=== PATIENT | male | born 1940 | race Caucasian/White ===

== ENCOUNTER → 2016-07-27 | Outpatient (CLI) | payer MEDICARE, OTHER ==
[~2016-07-27] MED LIST: ASPIR 8181 M1 PO; BENICAR40 MG PO; COZAAR25 MG PO; NEXIUM40 MG PO; ZOCOR20 MG PO; ZOFRAN4 MG PO
== END | disposition home or self-care (01) ==
LOC: CDC 08:37
DX: I45.10 Unspecified right bundle-branch block (principal); K40.90 Unilateral inguinal hernia, without obstruction or gangrene, not specified as recurrent
CPT/HCPCS: 93000

== ENCOUNTER 2016-08-01 08:25 | Day surgery (SDC) | payer OTHER ==
[~2016-08-01] VITALS: Ht 177.8 cm; Wt 84.0 kg
[2016-08-01 09:25] VITALS: BP 121/65
[2016-08-01] MEDS ORDERED: PERCOCET 5/31 TABLET PO (12:55)
[2016-08-01 15:10] VITALS: BP 128/59
== END 2016-08-01 15:25 | disposition home or self-care (01) ==
LOC: SDC
PROC: 0YQ60ZZ Repair Left Inguinal Region, Open Approach (ICD-10-PCS; principal; 2016-08-01)
DX: K40.90 Unilateral inguinal hernia, without obstruction or gangrene, not specified as recurrent (principal); I71.4 Abdominal aortic aneurysm, without rupture; I10 Essential (primary) hypertension; E78.5 Hyperlipidemia, unspecified; Z85.46 Personal history of malignant neoplasm of prostate
CPT/HCPCS: J0690; J1170; J2405; J3010

== ENCOUNTER 2016-10-14 05:26 | Observation (INO) | payer OTHER ==
[~2016-10-14] VITALS: Ht 177.8 cm; Wt 88.8 kg
[~2016-10-14 05:26] MED LIST changes: +PERCOCET 5/31 TABLET PO
[2016-10-14 05:58] LABS: EOSINOPHIL (%) 3.2 % (0-5); EOSINOPHIL COUNT 0.2 K/uL (0-0.3); HEMATOCRIT 39.1 % (38.0-50.0); IMMATURE GRANULOCYTE (%) 0.5 % (0.0-0.7); INSTRUMENT ABS NEUTROPHIL CT 4.3 K/uL; LYMPHOCYTE COUNT 1.1 K/uL (1.0-2.8); MCH 31.5 PG (29.0-34.0); MCHC 34.3 G/DL (30.0-36.0); MCV 91.8 FL (86-99); MEAN PLAT.VOLUME 8.6 uM^3 (9.0-12.4); MONOCYTE (%) 9.6 % (3-12); MONOCYTE COUNT 0.6 K/uL (0-0.8); NEUTROPHIL (%) 69.1 % (45-76); NEUTROPHIL COUNT 4.3 K/uL (1.8-6.4); PLATELET COUNT 213 K/uL (156-360); RBC DIS.WIDTH-CV 12.5 % (11.8-14.6); RBC DIS.WIDTH-SD 41.8 % (39-53); RED BLOOD COUNT 4.26 M/uL (4.00-5.50); WHITE BLOOD COUNT 6.3 K/uL (4.1-10.2)
[2016-10-14 06:10] LABS: CHLORIDE 106 mEq/L (99-109); D-DIMER ELISA 1.51 mg/L FEU (< 0.57); POTASSIUM 3.7 mEq/L (3.7-5.4); SODIUM 138 mEq/L (136-147)
[2016-10-14 06:12] LABS: GLUCOSE 117 mg/dL (70-99)
[2016-10-14 06:14] LABS: ANION GAP 10 MEQ/L (2-14); TOTAL BILIRUBIN 0.8 mg/dL (0.0-1.0)
[2016-10-14 06:16] LABS: ALKALINE PHOSPHATASE 58 IU/L (3-129); GFR ESTIMATE (CALCULATED) > 59 mL/min/
[2016-10-14 06:17] LABS: UREA NITROGEN (BUN) 16 mg/dL (9-23)
[2016-10-14 06:20] LABS: TROP-I INTERPRETATION NEGATIVE; TROPONIN-I < 0.01 ng/mL (0.0-0.30)
[2016-10-14 09:32] LABS: HDL CHOLESTEROL 32 MG/DL (Desirable>=40); LDL CHOLESTEROL 70 mg/dL (Desirable<100); NON-HDL CHOLESTEROL 98 mg/dL (Desirable<160); TOTAL CHOLESTEROL 130 mg/dL (Desirable<200); TRIGLYCERIDES 141 MG/DL (Normal: <150)
[2016-10-14 12:23] VITALS: BP 149/82
[2016-10-14 13:06] LABS: TROP-I INTERPRETATION NEGATIVE; TROPONIN-I < 0.01 ng/mL (0.0-0.30)
[2016-10-14 13:44] LABS: Estimated Average Glucose 108 mg/dL (70-123); HEMOGLOBIN A1c (GLYCOHEMOGLOB) 5.4 % HGB (Below 5.7)
[2016-10-14 15:52] VITALS: BP 127/74
[2016-10-14 15:53] VITALS: BP 123/73; BP 127/79
[2016-10-14 15:54] VITALS: BP 127/78
[2016-10-14 15:54] LABS: ADD MIUA? NO; BILIRUBIN NEGATIVE; BLOOD NEGATIVE; COLOR STRAW ((YELLOW)); GLUCOSE (STRIP) NEGATIVE; KETONES NEGATIVE; LEUKOCYTES NEGATIVE; NITRITE NEGATIVE; PROTEIN (STRIP) NEGATIVE; SPECIFIC GRAVITY 1.016 (1.000-1.030); UCUL ADDED? NO; UROBILINOGEN 0.2 MG/DL (0.2-1.0)
[2016-10-14 18:38] LABS: TROP-I INTERPRETATION NEGATIVE; TROPONIN-I < 0.01 ng/mL (0.0-0.30)
[2016-10-14 19:20] VITALS: BP 122/75
[2016-10-14 23:59] VITALS: BP 118/67
[2016-10-15 00:01] VITALS: BP 118/67; BP 125/69
[2016-10-15 08:00] VITALS: BP 152/88
[2016-10-15] MEDS ORDERED: AMOX TR-K CLV1 EAC3 PO (10:39)
[2016-10-15] MEDS ORDERED: ANTIVERT25 MG PO (10:39)
[2016-10-15 10:58] VITALS: BP 136/80; BP 139/80; BP 147/83
== END 2016-10-15 13:59 | disposition home or self-care (01) ==
LOC: EME → EDBD 05:26 → EME 05:26 → EDOF 08:01 → 5WEST 11:45
PROVIDERS: Emergency Medicine; Internal Medicine
DX: H81.10 Benign paroxysmal vertigo, unspecified ear (principal); H66.91 Otitis media, unspecified, right ear; R55 Syncope and collapse; I10 Essential (primary) hypertension; I45.10 Unspecified right bundle-branch block; Z86.73 Personal history of transient ischemic attack (TIA), and cerebral infarction without residual deficits; Z85.46 Personal history of malignant neoplasm of prostate; Z87.891 Personal history of nicotine dependence
CPT/HCPCS: 70450; 70544; 70551; 71020; 71275; 80053; 80061; 81003; 83036; 84443; 84484; 85025; 85379; 93005; 93306; 93880; 93970; 99281; 99285; G0378; J1650; J2405; J7030